=== PATIENT | female | born 1960 | race Caucasian/White ===

== ENCOUNTER → 2017-08-07 09:27 | Outpatient (CLI) | payer BC, SELFPAY ==
[2017-08-07 10:01] LABS: Basophils % 0.3 % (0.1-2.0); Eosinophils # 0.2 K/mm3 (0.0-0.4); Eosinophils % 2.4 % (0.1-12.0); Hematocrit 45.4 % (37.0-47.0); Hemoglobin 15.4 g/dL (12.2-16.2); Lymphocytes # 2.3 K/mm3 (0.7-4.5); Lymphocytes % 22.9 K/mm3 (10-50); Mean Corpuscular Hemoglobin 30.8 pg (27.0-31.2); Mean Corpuscular Volume 90.7 fl (81-99); Mean Platelet Volume 7.4 fl (7.4-10.4); Monocytes # 0.5 K/mm3 (0.1-1.0); Neutrophils % 69.4 % (37.0-80.0); Platelet Count 322 K/mm3 (142-424); Red Blood Count 5.01 M/mm3 (4.20-5.40); Red Cell Distribution Width 13.5 % (11.5-17.5)
[2017-08-07 10:55] LABS: Erythrocyte Sedimentation Rate 12 mm/hr (0-30)
[2017-08-07 11:17] LABS: Alanine Aminotransferase 37 U/L (12-78); Albumin Level 4.1 gm/dL (3.4-5.0); Albumin/Globulin Ratio 1.1 (1.1-1.8); Alkaline Phosphatase 79 U/L (46-116); Anion Gap 12.4 mEq/L (5-15); Aspartate Amino Transferase 18 U/L (15-37); Bilirubin,Total 0.5 mg/dL (0.2-1.0); Blood Urea Nitrogen 13 mg/dL (7-18); Calcium 9.7 mg/dL (8.5-10.1); Carbon Dioxide 29 mmol/L (21.0-32.0); Chloride 103 mmol/L (98-107); Chol/HDL Ratio 4.6 (1-3.5); Cholesterol 209 mg/dL (140-200); Estimated Glomerular Filt Rate 47 ml/min (>60); GFR (African American) 56 ML/MIN (>60); Globulin 3.7 gm/dl (1.3-3.2); Glucose 89 mg/dL (74-106); HDL Cholesterol 45 mg/dL (29-89); LDL Cholesterol 119 mg/dL (0-130); Potassium 4.4 mmoL/L (3.5-5.1); Sodium 140 mmol/L (136-145); Thyroid Stimulating Hormone 1.83 uIU/ml (0.358-3.740); Total Protein,Serum 7.8 gm/dL (6.4-8.2); Triglycerides 223 mg/dL (30-200); VLDL Cholesterol 45 mg/dL (0-40)
[2017-08-12 06:14] LABS: Antinuclear Antibodies, IFA Positive (.)
== END ==
PROVIDERS: PCP Nurse Practitioner Family; Visit Provider Nurse Practitioner Family
DX: G89.4 Chronic pain syndrome (principal); E78.2 Mixed hyperlipidemia; F41.9 Anxiety disorder, unspecified
CPT/HCPCS: 36415; 80053; 80061; 84443; 85025; 85651; 86038

== ENCOUNTER → 2017-08-20 16:01 | Outpatient (CLI) | payer BC, SELFPAY ==
--- NOTE | 2017-08-20 16:08 | MM_ITS ---
MM Dig screening mamm BI w/CAD CAD Screening ORDERING PHYSICIAN : Coco Parada PATIENT AGE: 57 years GENDER: Female COMPARISON: Previous mammograms: From [facility] equivocal for but have not arrived in this is studies are now dictated facilitate patient care. It outside studies become in INDICATION: TECHNIQUE: Standard CC and MLO images were obtained. R2 CAD reviewed. Additional axillary cc views both breast as well as MLO views to include the IMF FINDINGS: Low-density breast generalized diffuse fatty replacement breast bilaterally. No dominant mass nor suspicious calcifications either breast. . No architectural distortion. CAD highlights no areas of significant concern -----IMPRESSION: Low-density breast. No areas of concern. Bilateral follow-up in one year recommended. ) (We have called for outside films from [place] but have not arrived. An addendum may follow but this is a negative mammogram in either case BI-RADS Category: 1 Negative RECOMMENDED FOLLOW-UP: 1YR - 1 YEAR FOLLOW-UP (A letter has been sent to the patient regarding results of the study.)
== END ==
PROVIDERS: PCP Nurse Practitioner Family; Visit Provider Nurse Practitioner Family
DX: Z12.31 Encounter for screening mammogram for malignant neoplasm of breast (principal)
CPT/HCPCS: 77067

== ENCOUNTER → 2017-08-31 11:25 | Outpatient (POV) | payer BC, SELFPAY ==
[2017-08-31 11:40] VITALS: BP 139/85; PULSE 88; RESP 20; O2SAT 98
--- NOTE | 2017-08-31 12:17 | HMH.PMCON ---
Assessment and Plan (1) Degenerative joint disease (DJD) of lumbar spine Current visit: Yes Status: Chronic Category: Medical Code(s): M47.816 - Spondylosis without myelopathy or radiculopathy, lumbar region (2) Lumbar radiculopathy Current visit: Yes Status: Chronic Category: Medical Code(s): M54.16 - Radiculopathy, lumbar region (3) Degenerative disc disease, cervical Current visit: Yes Status: Chronic Category: Medical Code(s): M50.30 - Other cervical disc degeneration, unspecified cervical region (4) Cervical radiculopathy Current visit: Yes Status: Chronic Category: Medical Code(s): M54.12 - Radiculopathy, cervical region - Assessment and plan all Dx Assessment and Plan for all problems:: We will plan a Nuvectra neurostimulator trial. I believe this would be beneficial to get both cervical and lumbar long-term coverage. Patient's tried and failed anti-inflammatories, physical therapy, massage therapy, medications, injections. Patient is looking for long-term nonnarcotic way to control her symptoms. Patient has a high ORT and is not a narcotic candidate. Patient is looking to become more functional. We will send her for psychological evaluation and then we will proceed with a trial. This note was dictated using voice recognition software and may contain errors or omissions HPI - Data of Consult Consult date: 08/31/17 Requesting Physician: Cassandra Woodward APRN Primary Care Provider: Coco Parada APRN Family Provider: Coco Parada APRN - Consult Narrative Reason for consult: Neck and low back pain History of present illness: Ms. Tinajero is a 57 year old female presents today for consultation in regards to her neck and low back pain. Patient rates her pain today an 8 out of 10. Patient has recently moved here from [place]. Patient had been going to pain management in [place] and receiving lumbar epidural steroid injections along with cervical epidural steroid injections. The injections worked for some time however they only lasted for 2-3 weeks. Patient was also getting Fraser 7.5 mg 1 p.o. 3 times daily. Patient states she does not want to be on narcotic medication. Patient is currently on Lorazepam 2 mg 1 p.o. 3 times daily for anxiety. Patient is interested in more long-term options for pain control. She did I had a long discussion about neuromodulation. Patient states that most of her pain is in her neck and radiating to her right arm. She also has low back pain radiating into bilateral legs. Patient's tried and failed medications, anti-inflammatories, career and technology education teacher, physical therapy, injections. Patient also tried and failed massage therapy. Patient's cervical MRI does show bilateral C6 nerve root compression. Patient's lumbar MRI does show multilevel degenerative disc disease. Patient is not on any anticoagulation therapy at this time. Patient is concerned about polypharmacy due to the amount of medication she has taken in the past. CC: Cassandra Woodward APRN [facility] History I have reviewed the patient's past medical history: Yes Laterality Cases: Bilateral: Tonsillectomy Other Surgeries: Yes: Cholecystectomy - *Social History Alcohol Intake: never Occupational Status: unemployed Housing: house - Psychiatric History Expresses thoughts of harming self/others: None Suicide Plan Description: No Plan *Family Hx:: Unable to obtain Review of Systems - Review of Systems ROS General: no recent weight change, no fever, no sleep disturbances Respiratory: no cough, no shortness of air, no recurring pulmonary infections Cardiovascular/Peripheral Vascular: No chest pain, No palpitations, no edema, no shortness of breath. Gastrointestinal: no incontinence, normal bowel movements reported Genitourinary: no incontinence Musculoskeletal: Pain, right arm pain, back pain, bilateral leg pain Psychiatric: normal mood/ affect Neurological: [denies weakness
--- NOTE | 2017-08-31 12:20 | P.CONS_ITS ---
Assessment and Plan (1) Degenerative joint disease (DJD) of lumbar spine Current visit: Yes Status: Chronic Category: Medical Code(s): M47.816 - Spondylosis without myelopathy or radiculopathy, lumbar region (2) Lumbar radiculopathy Current visit: Yes Status: Chronic Category: Medical Code(s): M54.16 - Radiculopathy, lumbar region (3) Degenerative disc disease, cervical Current visit: Yes Status: Chronic Category: Medical Code(s): M50.30 - Other cervical disc degeneration, unspecified cervical region (4) Cervical radiculopathy Current visit: Yes Status: Chronic Category: Medical Code(s): M54.12 - Radiculopathy, cervical region - Assessment and plan all Dx Assessment and Plan for all problems:: We will plan a Nuvectra neurostimulator trial. I believe this would be beneficial to get both cervical and lumbar long-term coverage. Patient's tried and failed anti-inflammatories, physical therapy, massage therapy, medications, injections. Patient is looking for long-term nonnarcotic way to control her symptoms. Patient has a high ORT and is not a narcotic candidate. Patient is looking to become more functional. We will send her for psychological evaluation and then we will proceed with a trial. This note was dictated using voice recognition software and may contain errors or omissions HPI - Data of Consult Consult date: 08/31/17 Requesting Physician: Cassandra Woodward APRN Primary Care Provider: Coco Parada APRN Family Provider: Coco Parada APRN - Consult Narrative Reason for consult: Neck and low back pain History of present illness: Ms. Tinajero is a 57 year old female presents today for consultation in regards to her neck and low back pain. Patient rates her pain today an 8 out of 10. Patient has recently moved here from [place]. Patient had been going to pain management in [place] and receiving lumbar epidural steroid injections along with cervical epidural steroid injections. The injections worked for some time however they only lasted for 2-3 weeks. Patient was also getting Pengilly 7.5 mg 1 p.o. 3 times daily. Patient states she does not want to be on narcotic medication. Patient is currently on Lorazepam 2 mg 1 p.o. 3 times daily for anxiety. Patient is interested in more long-term options for pain control. She did I had a long discussion about neuromodulation. Patient states that most of her pain is in her neck and radiating to her right arm. She also has low back pain radiating into bilateral legs. Patient's tried and failed medications, anti-inflammatories, adult daycare coordinator, physical therapy, injections. Patient also tried and failed massage therapy. Patient's cervical MRI does show bilateral C6 nerve root compression. Patient's lumbar MRI does show multilevel degenerative disc disease. Patient is not on any anticoagulation therapy at this time. Patient is concerned about polypharmacy due to the amount of medication she has taken in the past. CC: Cassandra Woodward APRN [facility] History I have reviewed the patient's past medical history: Yes Laterality Cases: Bilateral: Tonsillectomy Other Surgeries: Yes: Cholecystectomy - *Social History Alcohol Intake: never Occupational Status: unemployed Housing: house - Psychiatric History Expresses thoughts of harming self/others: None Suicide Plan Description: No Plan *Family Hx:: Unable to obtain Review of Systems - Review of Systems ROS General: no recent weight change, no fever, no sleep disturbances Respiratory: no cough, no shortness of air, no recurring pulmonary
== END ==
PROVIDERS: PCP Nurse Practitioner Family; Visit Provider Clinical Nurse Specialist Family Health
DX: M47.816 Spondylosis without myelopathy or radiculopathy, lumbar region (principal); M54.16 Radiculopathy, lumbar region; M50.30 Other cervical disc degeneration, unspecified cervical region; M54.12 Radiculopathy, cervical region
CPT/HCPCS: 99202

== ENCOUNTER → 2018-02-04 13:18 | Outpatient (CLI) | payer BC, SELFPAY ==
[2018-02-04 15:08] LABS: Anion Gap 13.6 mEq/L (5-15); Blood Urea Nitrogen 10 mg/dL (7-18); Calcium 9.6 mg/dL (8.5-10.1); Carbon Dioxide 29 mmol/L (21.0-32.0); Chloride 100 mmol/L (98-107); Estimated Glomerular Filt Rate 29 ml/min (>60); GFR (African American) 35 ML/MIN (>60); Glucose 94 mg/dL (74-106); Potassium 3.6 mmoL/L (3.5-5.1); Sodium 139 mmol/L (136-145)
== END ==
PROVIDERS: PCP Nurse Practitioner Family; Visit Provider Nurse Practitioner Family
DX: R79.89 Other specified abnormal findings of blood chemistry (principal); R63.4 Abnormal weight loss
CPT/HCPCS: 36415; 80048; 84443

== ENCOUNTER 2018-02-05 08:45 | Outpatient (CLI) | payer BC, SELFPAY ==
[2018-02-05 09:20] VITALS: BP 116/82; PULSE 81; RESP 18; TEMP 36.9; O2SAT 95
[2018-02-05 09:50] VITALS: BP 101/66; PULSE 71; RESP 16
[2018-02-05 10:20] VITALS: BP 105/71; PULSE 73; RESP 16; TEMP 36.6; O2SAT 97
== END 2018-02-05 10:30 | disposition home or self-care (01) ==
LOC: INF 09:02
PROVIDERS: Visit Provider Nurse Practitioner Family
DX: R79.89 Other specified abnormal findings of blood chemistry (principal); E86.0 Dehydration
CPT/HCPCS: 96360

== ENCOUNTER → 2018-02-11 08:24 | Outpatient (CLI) | payer OTHER, BC, SELFPAY ==
[2018-02-11 09:47] LABS: Anion Gap 14.1 mEq/L (5-15); Blood Urea Nitrogen 10 mg/dL (7-18); Calcium 9.7 mg/dL (8.5-10.1); Carbon Dioxide 29 mmol/L (21.0-32.0); Chloride 103 mmol/L (98-107); Creatinine,Serum 1.51 mg/dL (0.55-1.02); Estimated Glomerular Filt Rate 36 ml/min (>60); GFR (African American) 43 ML/MIN (>60); Glucose 107 mg/dL (74-106); Potassium 4.1 mmoL/L (3.5-5.1); Sodium 142 mmol/L (136-145)
== END ==
PROVIDERS: Visit Provider Nurse Practitioner Family
DX: R79.89 Other specified abnormal findings of blood chemistry (principal)
CPT/HCPCS: 36415; 80048

== ENCOUNTER → 2018-04-16 11:22 | Outpatient (CLI) | payer MEDICAID, SELFPAY ==
[2018-04-16 11:32] LABS: Microscopic, Urine URINE MICROSCOPIC (MICROSCOPIC)
[2018-04-16 12:21] LABS: Basophils % 0.7 % (0.1-2.0); Eosinophils # 0.3 K/mm3 (0.0-0.4); Eosinophils % 4.9 % (0.1-12.0); Hematocrit 41.3 % (37.0-47.0); Hemoglobin 13.3 g/dL (12.2-16.2); Lymphocytes # 1.8 K/mm3 (0.7-4.5); Lymphocytes % 31.3 % (10-50); Mean Corpuscular HGB Conc 32.1 g/dL (31.8-35.4); Mean Corpuscular Hemoglobin 30.6 pg (27.0-31.2); Mean Corpuscular Volume 95.2 fl (81-99); Mean Platelet Volume 7.2 fl (7.4-10.4); Monocytes # 0.3 K/mm3 (0.1-1.0); Monocytes % 5.5 % (1.7-9.3); Neutrophils # 3.3 K/mm3 (1.8-7.8); Neutrophils % 57.5 % (37.0-80.0); Platelet Count 373 K/mm3 (142-424); Red Blood Count 4.34 M/mm3 (4.20-5.40); Red Cell Distribution Width 13.1 % (11.5-17.5); White Blood Count 5.7 K/mm3 (4.8-10.8)
[2018-04-16 12:37] LABS: Appearance,Urine CLEAR (Clear); Bilirubin,Urine Negative (Negative); Blood, Urine Negative (Negative); Color,Urine YELLOW (Yellow); Glucose,Urine (UA) Negative (Negative); Ketones,Urine Negative (Negative); Leukocyte Esterase,Urine 1+ (Negative); Nitrate,Urine Negative (Negative); Protein,Urine Negative (Negative); Urobilinogen,Urine 0.2 EU/dl (0.2)
[2018-04-16 12:45] LABS: Bacteria,Urine Trace /lpf
[2018-04-16 13:01] LABS: Erythrocyte Sedimentation Rate 35 mm/hr (0-30)
[2018-04-16 14:09] LABS: Alanine Aminotransferase 28 U/L (12-78); Albumin Level 3.9 gm/dL (3.4-5.0); Albumin/Globulin Ratio 1.1 (1.1-1.8); Alkaline Phosphatase 69 U/L (46-116); Aspartate Amino Transferase 16 U/L (15-37); Bilirubin,Total 0.4 mg/dL (0.2-1.0); Blood Urea Nitrogen 14 mg/dL (7-18); C-Reactive Protein 0.2 mg/L (0.0-0.9); Calcium 8.9 mg/dL (8.5-10.1); Carbon Dioxide 28 mmol/L (21.0-32.0); Chloride 101 mmol/L (98-107); Creatinine,Serum 1.23 mg/dL (0.55-1.02); Estimated Glomerular Filt Rate 45 ml/min (>60); GFR (African American) 55 ML/MIN (>60); Globulin 3.7 gm/dl (1.3-3.2); Glucose 89 mg/dL (74-106); Sodium 137 mmol/L (136-145); Total Protein,Serum 7.6 gm/dL (6.4-8.2)
[2018-04-17 11:10] LABS: Hep A Ab, IgM Negative (Negative); Hepatitis B Core Antibody IgM Negative (Negative); Hepatitis B Surface Antigen Negative (Negative)
[2018-04-17 21:53] LABS: Complement C3 136 mg/dL (82-167); Deamidated Gliadin Abs, IgA 7 units (0-19); Deamidated Gliadin Abs, IgG 2 units (0-19); Hepatitis C Antibody 0.1 s/co ratio (0.0-0.9); Tissue Transglutaminase IgA Ab <2 U/mL (0-3); Tissue Transglutaminase IgG Ab <2 U/mL (0-5)
[2018-04-19 15:19] LABS: Anti-Centromere B Antibodies <0.2 AI (0.0-0.9); Anti-Jo-1 <0.2 AI (0.0-0.9); Anti-Smith Antibody <0.2 AI (0.0-0.9); Antichromatin Antibodies <0.2 AI (0.0-0.9); Antiscleroderma-70 Antibodies 0.6 AI (0.0-0.9); RNP Antibodies <0.2 AI (0.0-0.9); Sjogren's Anti-SS-A 0.2 AI (0.0-0.9); Sjogren's Anti-SS-B <0.2 AI (0.0-0.9)
[2018-04-19 15:32] LABS: Anti-Cardio Antibody IgM <9 MPL U/mL (0-12); Anti-Cardiolipin Antibody IgG <9 GPL U/mL (0-14); Anti-DNA (DS) Ab Qn 5 IU/mL (0-9); Anticardiolipin Ab,IgA,Qn <9 APL U/mL (0-11)
[2018-04-20 13:58] LABS: Endomysial IgA Antibody Negative (Negative)
[2018-04-21 10:31] LABS: Reticulin IgA Antibody Negative titer (Neg:<1:2.5)
== END ==
PROVIDERS: Visit Provider Internal Medicine
DX: N18.9 Chronic kidney disease, unspecified (principal); R21 Rash and other nonspecific skin eruption; R53.83 Other fatigue; R76.8 Other specified abnormal immunological findings in serum
CPT/HCPCS: 36415; 80053; 80074; 81001; 83516; 85025; 85651; 86140; 86147; 86161; 86225; 86235; 86255; 86256; 87086

== ENCOUNTER → 2018-04-17 10:43 | Outpatient (CLI) | payer MEDICAID, SELFPAY ==
[2018-04-19 12:12] LABS: PTT-LA 33.2 sec (0.0-51.9); dRVVT 42.6 sec (0.0-47.0)
[2018-04-19 15:32] LABS: Lupus Reflex Interpretation Comment: (.)
== END ==
PROVIDERS: Visit Provider Internal Medicine
DX: R76.8 Other specified abnormal immunological findings in serum (principal); R21 Rash and other nonspecific skin eruption; R53.83 Other fatigue; N18.9 Chronic kidney disease, unspecified
CPT/HCPCS: 36415; 85613

== ENCOUNTER 2018-06-04 08:00 | Outpatient (RCR) | payer MEDICAID, SELFPAY | END 2018-06-04 08:05 | disposition home or self-care (01) | LOC: PT 08:00 | PROVIDERS: Visit Provider Internal Medicine | DX: M17.0 Bilateral primary osteoarthritis of knee (principal) | CPT/HCPCS: 97010; 97012; 97014; 97110; 97163; 97164; G0283 ==

== ENCOUNTER → 2018-06-17 12:43 | Outpatient (CLI) | payer MEDICAID, SELFPAY ==
--- NOTE | 2018-06-17 12:46 | MR_ITS ---
MR cervical spine wo con, MR 3-d myelogram/MRCP HISTORY: RT sided neck pain. RT arm pain, numbness, and tingling that goes to fingers. X1YR. Headache. ITS.REASON: CERVICAL RADICULOPATHY ORDERING PHYSICIAN: Octavio Acevedo MD PATIENT AGE: 57 years Comparison: None TECHNIQUE: Standard multiplanar multiecho sequences are performed without contrast. 3-D MIP and myelographic images are also rendered and reviewed FINDINGS: There is normal alignment. The craniocervical junction has an unremarkable appearance. There is straightening of the cervical lordosis which may be due to patient positioning or muscle spasm C2-C3: Unremarkable. C3-C4: Mild left-sided facet hypertrophic change with minimal left foraminal narrowing. C4-C5: Minimal bulging disc. C5-C6: Degenerative disc disease with decrease in the disc-disc desiccation with broad-based bulging disc/disc osteophyte complex along with uncovertebral hypertrophy/disc osteophyte complexes . There is narrowing of the canal at 9 mm with bilateral lateral recess and foraminal narrowing. There is minimal flattening of the anterior aspect of the cord from the broad-based disc osteophyte complex. C6-C7: Degenerative disc disease with bulging disc. C7-T1: Unremarkable. IMPRESSION: 1. Degenerative disc disease at C5-C6 with broad-based bulging disc/disc osteophyte complex along with uncovertebral hypertrophy/disc osteophyte complexes with canal stenosis of 9 mm and bilateral lateral recess and foraminal narrowing and minimal flattening of the cord anteriorly. 2. Cervical spondylosis with other degenerative changes as described above. 3. No extruded herniated disc
== END ==
PROVIDERS: PCP Nurse Practitioner Family; Visit Provider Anesthesiology Pain Medicine
DX: M54.12 Radiculopathy, cervical region (principal)
CPT/HCPCS: 72141; 76376

== ENCOUNTER 2018-07-21 13:57 | Outpatient (RCR) | payer OTHER, SELFPAY ==
--- NOTE | 2018-07-21 14:47 | HMH.PTOPEV ---
PT Outpatient Evaluation Rehab PT Outpatient Evaluation Start: 07/21/18 14:36 Freq: Status: Active Protocol: Document 07/21/18 14:36 KAREN (Rec: 07/21/18 14:46 KAREN [id number]) Electronically Signed By Gabriele Loza, PT 07/21/18 14:36 Outpatient Therapy Subjective History Subjective History Pt reports h/o chronic neck pain, mid back pain, LBP and B Knee pain. Pt reports recent exacerbation of R sided neck pain and mid back pain, as well as intermittent R UE radicular s/s into R 4th/5th digits and frequent cervico- genic SCHUSTER's. Pt reports previous imaging studies have revealed stenosis in cervical (C6-7) and thoracic spine. PMH : fibromyalgia Chief Complaint Pain Spasms Stiff Paresthesia Weakness Symptom Type Ache Throb Sharp Dull Stabbing Burning Numbness Tingling Shooting Symptoms Relieved By Rest/Positioning Symptoms Aggravated By Standing Bending/Stooping Physical Activity Twisting Walking Lifting Prior Functional Limitations Reaching Lifting Housework Current Functional Limitations Reaching Lifting Housework Bending/Stooping Symptom Description Constant but Variable Level of pain today (0-10) 6 Pain scale - at its best (0-10) 3 Pain scale - at its worst (0-10) 8 Cervical Eval Palpation Cervical Muscles R Cervical Paraspinal L Cervical Paraspinal R Suboccipital L Suboccipital R CT Junction L CT Junction R Upper Trapezius L Upper Trapezius
== END 2018-07-21 13:59 | disposition home or self-care (01) ==
LOC: PT 13:57
PROVIDERS: Visit Provider Nurse Practitioner Family
DX: M54.6 Pain in thoracic spine (principal)
CPT/HCPCS: 97163

== ENCOUNTER 2018-10-19 11:00 | Outpatient (RCR) | payer OTHER, SELFPAY ==
--- NOTE | 2018-09-14 11:46 | HMH.PTOPEV ---
PT Outpatient Evaluation Rehab PT Outpatient Evaluation Start: 09/14/18 11:36 Freq: Status: Active Protocol: Document 09/14/18 11:36 KAREN (Rec: 09/14/18 11:45 KAREN [id number]) Electronically Signed By Gabriele Loza, PT 09/14/18 11:36 Outpatient Therapy Subjective History Subjective History Pt reports h/o chronic pain/ fibromyalgia for ~10+yrs. Pt reports exacerbation of s/s over the last 4 weeks, with severe pain in cervical spine, mid back, low back, and bilateral knees. Pt also reports chronic B knee pain (R >L), and intermittent R sided LBP/hip/glut area pain. Pt reports previous episodes of skilled P.T. have improved s/s . PMH:fibromyalgia, OA Chief Complaint Pain,Stiff,Paresthesia, Weakness Symptom Type Ache,Throb,Sharp,Dull,Stabbing ,Burning,Numbness,Tingling, Shooting Symptoms Relieved By Nothing Symptoms Aggravated By Prone,Supine,Sitting,Standing, Bending/Stooping,Physical Activity,Twisting,Walking, Lifting Prior Functional Limitations Reaching,Lifting,Housework, Driving,Standing,Sitting, Walking Current Functional Limitations Reaching,Lifting,Housework, Driving,Standing,Sitting, Walking Symptom Description Constant but Variable Level of pain today (0-10) 7 Pain scale - at its best (0-10) 7 Pain scale - at its worst (0-10) 10 Cervical Eval Palpation Cervical Muscles R Cervical Paraspinal,L Cervical Paraspinal,R Suboccipital,L Suboccipital,R CT Junction,L CT Junction,R Upper Trapezius,L Upper Trapezius,R Thoracic Paraspinals,L Thoracic Paraspinals Cervical/Thoracic Palpation Findings Tenderness,Muscle Guarding Posture Head/C-Spine Posture Sitting Position Flexed Head/C-Spine Posture Standing Position Flexed Flexibility Deficits Upper Trapezius Muscle Length (R) Mild Tightness,(L) Mild Tightness Scalene Group Muscle Length (R) Mild Tightness,(L) Mild Tightness Pectorali
== END 2018-10-19 11:05 | disposition home or self-care (01) ==
LOC: PT 11:00
PROVIDERS: Visit Provider Internal Medicine
DX: M25.50 Pain in unspecified joint (principal); M54.5 Low back pain; M54.6 Pain in thoracic spine
CPT/HCPCS: 97010; 97014; 97110; 97163; G0283

== ENCOUNTER → 2019-01-31 11:38 | Outpatient (CLI) | payer OTHER, SELFPAY ==
[2019-01-31 12:06] LABS: Basophils # 0.1 K/mm3 (0-0.2); Basophils % 0.7 % (0.1-2.0); Eosinophils # 0.3 K/mm3 (0.0-0.4); Eosinophils % 4.3 % (0.1-12.0); Hemoglobin 13.5 g/dL (12.2-16.2); Lymphocytes # 1.9 K/mm3 (0.7-4.5); Lymphocytes % 27.2 % (10-50); Mean Corpuscular HGB Conc 33.7 g/dL (31.8-35.4); Mean Corpuscular Hemoglobin 30.9 pg (27.0-31.2); Mean Corpuscular Volume 91.7 fl (81-99); Mean Platelet Volume 7.8 fl (7.4-10.4); Monocytes # 0.4 K/mm3 (0.1-1.0); Monocytes % 5.5 % (1.7-9.3); Neutrophils # 4.4 K/mm3 (1.8-7.8); Neutrophils % 62.3 % (37.0-80.0); Platelet Count 348 K/mm3 (142-424); Red Blood Count 4.36 M/mm3 (4.20-5.40); Red Cell Distribution Width 12.7 % (11.5-17.5); White Blood Count 7.1 K/mm3 (4.8-10.8)
[2019-01-31 13:49] LABS: Alanine Aminotransferase 17 U/L (12-78); Albumin Level 3.5 gm/dL (3.4-5.0); Albumin/Globulin Ratio 1.1 (1.1-1.8); Alkaline Phosphatase 86 U/L (46-116); Anion Gap 12.1 mEq/L (5-15); Aspartate Amino Transferase 12 U/L (15-37); Bilirubin,Total 0.2 mg/dL (0.2-1.0); Blood Urea Nitrogen 22 mg/dL (7-18); Calcium 9.7 mg/dL (8.5-10.1); Carbon Dioxide 29 mmol/L (21.0-32.0); Chloride 105 mmol/L (98-107); Chol/HDL Ratio 4.1 (1-3.5); Cholesterol 150 mg/dL (140-200); Creatinine,Serum 1.05 mg/dL (0.55-1.02); Estimated Glomerular Filt Rate 54 ml/min (>60); GFR (African American) 65 ML/MIN (>60); Globulin 3.3 gm/dl (1.3-3.2); Glucose 87 mg/dL (74-106); HDL Cholesterol 37 mg/dL (29-89); LDL Cholesterol 43 mg/dL (0-130); Potassium 4.1 mmoL/L (3.5-5.1); Sodium 142 mmol/L (136-145); Total Protein,Serum 6.8 gm/dL (6.4-8.2); Triglycerides 349 mg/dL (30-200); VLDL Cholesterol 70 mg/dL (0-40)
== END ==
PROVIDERS: Visit Provider Nurse Practitioner Family
DX: N18.3 Chronic kidney disease, stage 3 (moderate) (principal); E78.2 Mixed hyperlipidemia
CPT/HCPCS: 36415; 80053; 80061; 85025

== ENCOUNTER 2019-03-24 16:00 | Outpatient (RCR) | payer OTHER, SELFPAY ==
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
== END 2019-03-24 16:05 | disposition home or self-care (01) ==
LOC: PT 16:00
PROVIDERS: Visit Provider Nurse Practitioner Family
DX: M54.2 Cervicalgia (principal)
CPT/HCPCS: 97010; 97014; 97035; 97110; 97140; 97163; G0283

== ENCOUNTER → 2019-05-16 14:56 | Outpatient (CLI) | payer MEDICARE, SELFPAY ==
--- NOTE | 2019-05-16 15:01 | MM_ITS ---
PROCEDURE: MM DIG SCREENING MAMM BI W/CAD CLINICAL INDICATION: SCREENING There is no personal or family history of breast cancer. The patient is on estradiol patch. COMPARISON: MM MAMMO SCREEN W CAD G0202 from 03/29/2015 [facility] MM Dig screening mamm BI w/CAD from 08/20/2017 TECHNIQUE: Standard CC and MLO images and 3D Tomosynthesis was obtained. R2 CAD reviewed. FINDINGS: The breasts are composed primarily of fat with minimal scattered fibroglandular densities in each breast. There is a stable small benign-appearing nodular density central portion right breast. There are multiple small nodes in both axilla a couple of which are low-lying. There is no suspicious lesion and no suspicious microcalcifications. IMPRESSION: Fatty type breast parenchyma with no suspicious lesions seen BI-RAD Category: 2 Benign Finding(s) FOLLOW-UP: 1YR 1 Year Follow-up (A letter has been sent to the patient regarding results of the study.) Dictated by: Dr. Abhi Metzger MD 05/18/2019 09:[address] Abhi Metzger MD in [place] 05/18/2019 09:05
--- NOTE | 2019-05-16 15:02 | XR_ITS ---
PROCEDURE: XR DEXA AXIAL SKELETON CLINICAL HISTORY: MENOPAUSAL SCREENING COMPARISON: No exams were available for comparison FINDINGS: Right femur density is 1.085 grams/centimeters sq with a T-score of 1.2 which is normal. Left femur neck density is 0.850 grams/centimeters sq which is 0.0 which is normal. Lumbar spine density not calculated IMPRESSION: Normal bone density. Suggest follow-up in 2 years. Dictated by: Kevin Murillo MD 05/23/2019 18:15 Electronically signed by Kevin Murillo MD in [place] 05/23/2019 18:15
== END ==
PROVIDERS: PCP Nurse Practitioner Family; Visit Provider Nurse Practitioner Family
DX: Z12.31 Encounter for screening mammogram for malignant neoplasm of breast (principal); Z78.0 Asymptomatic menopausal state
CPT/HCPCS: 77063; 77067; 77080

== ENCOUNTER → 2019-05-27 12:57 | Outpatient (CLI) | payer MEDICARE, SELFPAY ==
[2019-05-27 13:47] LABS: Basophils % 0.4 % (0.1-2.0); Eosinophils # 0.2 K/mm3 (0.0-0.4); Eosinophils % 2.3 % (0.1-12.0); Lymphocytes % 24.6 % (10-50); Mean Corpuscular HGB Conc 32.6 g/dL (31.8-35.4); Mean Corpuscular Hemoglobin 29.7 pg (27.0-31.2); Mean Corpuscular Volume 91.1 fl (81-99); Mean Platelet Volume 7.8 fl (7.4-10.4); Monocytes # 0.5 K/mm3 (0.1-1.0); Monocytes % 6.8 % (1.7-9.3); Neutrophils # 5.2 K/mm3 (1.8-7.8); Neutrophils % 65.8 % (37.0-80.0); Platelet Count 397 K/mm3 (142-424); Red Blood Count 4.72 M/mm3 (4.20-5.40); Red Cell Distribution Width 14.5 % (11.5-17.5); White Blood Count 7.9 K/mm3 (4.8-10.8)
[2019-05-27 15:02] LABS: Alanine Aminotransferase 34 U/L (9-52); Albumin/Globulin Ratio 1.1 (1.1-1.8); Alkaline Phosphatase 71 U/L (46-116); Anion Gap 13.3 mEq/L (5-15); Aspartate Amino Transferase 29 U/L (15-37); Bilirubin,Total 0.4 mg/dL (0.2-1.0); Blood Urea Nitrogen 16 mg/dL (7-18); Calcium 9.5 mg/dL (8.5-10.1); Carbon Dioxide 30 mmol/L (21.0-32.0); Chloride 102 mmol/L (98-107); Creatinine,Serum 1.26 mg/dL (0.55-1.02); Estimated Glomerular Filt Rate 44 ml/min (>60); GFR (African American) 53 ML/MIN (>60); Globulin 3.5 gm/dl (1.3-3.2); Glucose 91 mg/dL (74-106); Potassium 4.3 mmoL/L (3.5-5.1); Sodium 141 mmol/L (137-145); Total Protein,Serum 7.5 g/dL (6.4-8.2)
[2019-05-28 19:12] LABS: Rapid Plasma Reagin Ab Titer Non Reactive (NonRea<1:1)
[2019-05-30 21:00] LABS: Neisseria gonorrhoeae, NAA Negative (Negative)
== END ==
PROVIDERS: Visit Provider Nurse Practitioner Family
DX: R35.0 Frequency of micturition (principal); B00.1 Herpesviral vesicular dermatitis; Z13.9 Encounter for screening, unspecified
CPT/HCPCS: 36415; 80053; 85025; 86592; 86695; 86790; 87491; 87591

== ENCOUNTER 2019-12-06 14:00 | Outpatient (CLI) | payer MEDICARE, SELFPAY ==
[2019-12-06 14:30] VITALS: BP 136/78; PULSE 107; RESP 18; TEMP 36.2; O2SAT 96
== END 2019-12-06 14:30 | disposition home or self-care (01) ==
LOC: INF 14:02
PROVIDERS: PCP Nurse Practitioner Family; Visit Provider Allergy & Immunology
DX: J45.51 Severe persistent asthma with (acute) exacerbation (principal)
CPT/HCPCS: 96372; J2357

== ENCOUNTER 2020-01-02 11:42 | Outpatient (CLI) | payer MEDICARE, SELFPAY ==
[2020-01-02 12:02] LABS: Basophils % 0.3 % (0.1-2.0); Eosinophils # 0.2 K/mm3 (0.0-0.4); Hemoglobin 14.7 g/dL (12.2-16.2); Lymphocytes # 1.5 K/mm3 (0.7-4.5); Lymphocytes % 19.9 % (10-50); Mean Corpuscular HGB Conc 34.1 g/dL (31.8-35.4); Mean Corpuscular Volume 93.8 fl (81-99); Monocytes # 0.5 K/mm3 (0.1-1.0); Monocytes % 6.7 % (1.7-9.3); Neutrophils # 5.4 K/mm3 (1.8-7.8); Platelet Count 323 K/mm3 (142-424); Red Blood Count 4.58 M/mm3 (4.20-5.40); Red Cell Distribution Width 14.1 % (11.5-17.5); White Blood Count 7.7 K/mm3 (4.8-10.8)
[2020-01-02 12:29] LABS: Erythrocyte Sedimentation Rate 23 mm/hr (0-30)
[2020-01-02 12:50] LABS: Chloride 100 mmol/L (98-107); Potassium 4.9 mmoL/L (3.5-5.1); Sodium 137 mmol/L (136-145)
[2020-01-02 12:53] LABS: Alanine Aminotransferase 28 U/L (12-78); Albumin Level 4.2 g/dl (3.5-5.0); Albumin/Globulin Ratio 1.4 (1.1-1.8); Alkaline Phosphatase 69 U/L (38-126); Anion Gap 11.9 mEq/L (5-15); Aspartate Amino Transferase 33 U/L (14-36); Bilirubin,Total 0.4 mg/dl (0.2-1.3); Blood Urea Nitrogen 16 mg/dl (7-17); Carbon Dioxide 30 mmol/L (22.0-30.0); Cholesterol 174 mg/dl (140-200); Estimated Glomerular Filt Rate 46 ml/min (>60); GFR (African American) 56 ML/MIN (>60); Globulin 3.1 g/dL (1.3-3.2); Total Protein,Serum 7.3 g/dl (6.3-8.2); Triglycerides 288 mg/dl (30-150); VLDL Cholesterol 58 mg/dL (0-40)
[2020-01-02 12:54] LABS: Calcium 9.4 mg/dl (8.4-10.2); Chol/HDL Ratio 4.2 (1-3.5); Glucose 98 mg/dl (74-100); HDL Cholesterol 41 mg/dl (40-60)
[2020-01-02 13:04] LABS: Direct LDL Cholesterol 86.52 mg/dL (100-129)
[2020-01-02 13:19] LABS: Hemoglobin A1C 5.6 % (4.0-6.0)
[2020-01-02 13:23] LABS: Thyroid Stimulating Hormone 0.39 uIU/mL (0.465-4.68)
[2020-01-02 14:15] VITALS: BP 147/86; PULSE 96; RESP 18; TEMP 36.4; O2SAT 98
[2020-01-03 10:02] LABS: Hepatitis C Antibody <0.1 s/co ratio (0.0-0.9)
[2020-01-03 13:30] LABS: RA Latex Turbid. 10.4 IU/mL (0.0-13.9)
[2020-01-29 16:24] LABS: Antinuclear Antibodies (ANA) Negative
== END 2020-01-02 14:15 | disposition home or self-care (01) ==
LOC: INF 11:43
PROVIDERS: PCP Nurse Practitioner Family; Visit Provider Allergy & Immunology
DX: E78.2 Mixed hyperlipidemia (principal); R63.5 Abnormal weight gain; N18.3 Chronic kidney disease, stage 3 (moderate); M25.50 Pain in unspecified joint; J45.51 Severe persistent asthma with (acute) exacerbation; Z79.899 Other long term (current) drug therapy
CPT/HCPCS: 36415; 80053; 80061; 83036; 84443; 85025; 85651; 86038; 86431; 87380; 96372; J2357

== ENCOUNTER → 2020-03-02 16:01 | Outpatient (CLI) | payer MEDICARE, SELFPAY | PROVIDERS: PCP Nurse Practitioner Family; Visit Provider Nurse Practitioner Family | DX: Z03.818 Encounter for observation for suspected exposure to other biological agents ruled out (principal) | CPT/HCPCS: U0003 ==

== ENCOUNTER 2020-03-29 10:10 | Outpatient (CLI) | payer MEDICARE, SELFPAY ==
[2020-03-29 10:39] VITALS: BP 123/85; PULSE 93; RESP 18; TEMP 36.2; O2SAT 98
== END 2020-03-29 10:40 | disposition home or self-care (01) ==
LOC: INF 10:21
PROVIDERS: Visit Provider Allergy & Immunology
DX: J45.51 Severe persistent asthma with (acute) exacerbation (principal)
CPT/HCPCS: 96372; J2357

== ENCOUNTER 2020-05-01 14:25 | Outpatient (CLI) | payer MEDICARE, SELFPAY ==
[2020-05-01 14:38] VITALS: BP 127/84; PULSE 99; RESP 18; TEMP 36.2; O2SAT 99
== END 2020-05-01 15:01 | disposition home or self-care (01) ==
LOC: INF 14:25
PROVIDERS: Visit Provider Allergy & Immunology
DX: J45.51 Severe persistent asthma with (acute) exacerbation (principal)
CPT/HCPCS: 96372; J2357

== ENCOUNTER 2020-06-06 14:50 | Outpatient (CLI) | payer MEDICARE, SELFPAY ==
[2020-06-06 15:25] VITALS: BP 146/80; PULSE 94; RESP 20; TEMP 36.7; O2SAT 99
== END 2020-06-06 15:44 | disposition home or self-care (01) ==
LOC: INF 14:50
PROVIDERS: Visit Provider Allergy & Immunology
DX: J45.51 Severe persistent asthma with (acute) exacerbation (principal)
CPT/HCPCS: 96372; J2357

== ENCOUNTER 2020-07-02 15:10 | Outpatient (CLI) | payer MEDICARE, SELFPAY ==
[2020-07-02 15:25] VITALS: BP 120/84; PULSE 94; RESP 18; TEMP 36.3; O2SAT 99
== END 2020-07-02 15:50 | disposition home or self-care (01) ==
LOC: INF 15:10
PROVIDERS: Visit Provider Allergy & Immunology
DX: J45.51 Severe persistent asthma with (acute) exacerbation (principal)
CPT/HCPCS: 96372; J2357

== ENCOUNTER 2020-07-30 15:08 | Outpatient (CLI) | payer MEDICARE, SELFPAY ==
[2020-07-30 15:30] VITALS: BP 149/82; PULSE 96; RESP 18; TEMP 36.2; O2SAT 97
== END 2020-07-30 15:30 | disposition home or self-care (01) ==
LOC: INF 15:08
PROVIDERS: Visit Provider Allergy & Immunology
DX: J45.51 Severe persistent asthma with (acute) exacerbation (principal)
CPT/HCPCS: 96372; J2357

== ENCOUNTER 2020-08-27 15:03 | Outpatient (CLI) | payer MEDICARE, SELFPAY ==
[2020-08-27 15:26] VITALS: BP 113/68; PULSE 101; RESP 18; TEMP 36.6; O2SAT 97
== END 2020-08-27 15:45 | disposition home or self-care (01) ==
LOC: INF 15:03
PROVIDERS: Visit Provider Nurse Practitioner
DX: J45.51 Severe persistent asthma with (acute) exacerbation (principal)
CPT/HCPCS: 96372; J2357

== ENCOUNTER 2020-09-24 14:34 | Outpatient (CLI) | payer MEDICARE, SELFPAY ==
[2020-09-24 14:54] VITALS: BP 137/90; PULSE 92; RESP 18; TEMP 36.4; O2SAT 97
== END 2020-09-24 15:06 | disposition home or self-care (01) ==
LOC: INF 14:34
PROVIDERS: Visit Provider Nurse Practitioner
DX: J45.51 Severe persistent asthma with (acute) exacerbation (principal)
CPT/HCPCS: 96372; J2357

== ENCOUNTER → 2020-11-05 14:25 | Outpatient (CLI) | payer MEDICARE, SELFPAY ==
[2020-11-05 14:53] VITALS: BP 124/96; PULSE 108; RESP 20; TEMP 36.4; O2SAT 95
== END ==
PROVIDERS: Visit Provider Allergy & Immunology
DX: J45.51 Severe persistent asthma with (acute) exacerbation (principal)
CPT/HCPCS: 96372; J2357

== ENCOUNTER → 2020-11-07 15:12 | Outpatient (CLI) | payer MEDICARE, SELFPAY ==
--- NOTE | 2020-11-07 15:14 | MM_ITS ---
PROCEDURE INFORMATION: Exam: MG Screening 3D Mammography Exam date and time: 11/07/2020 3:14 PM Age: 60 years old Clinical indication: Encounter for screening mammogram for malignant neoplasm of breast TECHNIQUE: Imaging protocol: Screening tomosynthesis and 2D mammography including computer-aided detection (CAD) when performed. COMPARISON: 1. MG MM DIG SCREENING MAMM BI W/CAD 05/16/2019 3:08 PM 2. MG [facility] MM Dig screening mamm BI w/CAD 08/20/2017 4:19 PM FINDINGS: MAMMOGRAPHY: Breast composition: The breast tissue is composed of scattered areas of fibroglandular density. Mass: None. Architectural distortion: None. Calcifications: No suspicious calcifications. Asymmetric density: None. Skin thickening: None. Axillary adenopathy: None. IMPRESSION: No mammographic evidence of malignancy. Annual screening is recommended unless otherwise clinically indicated. ASSESSMENT: BI-RADS Category 1: Negative
== END ==
PROVIDERS: PCP Nurse Practitioner Family; Visit Provider Nurse Practitioner Family
DX: Z12.31 Encounter for screening mammogram for malignant neoplasm of breast (principal)
CPT/HCPCS: 77063; 77067

== ENCOUNTER 2020-12-26 15:09 | Outpatient (CLI) | payer MEDICARE, OTHER, SELFPAY ==
[2020-12-26 15:45] VITALS: BP 134/92; PULSE 94; RESP 20; O2SAT 97
== END 2020-12-26 15:45 | disposition home or self-care (01) ==
LOC: INF 15:16
PROVIDERS: PCP Nurse Practitioner Family; Visit Provider Allergy & Immunology
DX: J45.51 Severe persistent asthma with (acute) exacerbation (principal)
CPT/HCPCS: 96372; J2357

== ENCOUNTER 2021-02-06 14:52 | Outpatient (CLI) | payer MEDICARE, OTHER, SELFPAY ==
[2021-02-06 15:23] VITALS: BP 142/91; PULSE 72; RESP 18; TEMP 36.2; O2SAT 100
== END 2021-02-06 15:40 | disposition home or self-care (01) ==
LOC: INF 14:54
PROVIDERS: PCP Nurse Practitioner Family; Visit Provider Allergy & Immunology
DX: J45.51 Severe persistent asthma with (acute) exacerbation (principal)
CPT/HCPCS: 96372; J2357

== ENCOUNTER → 2022-01-06 10:44 | Outpatient (CLI) | payer MEDICARE, SELFPAY ==
--- NOTE | 2022-01-06 10:47 | MM_ITS ---
PROCEDURE INFORMATION: Exam: MG Bilateral Screening 3D Mammography Exam date and time: 01/06/2022 10:58 AM Age: 61 years old Clinical indication: Screening examination. No family history of breast cancer. TECHNIQUE: Imaging protocol: Bilateral Screening tomosynthesis and 2D mammography including computer-aided detection (CAD) when performed. COMPARISON: 1. MG MM DIG SCREENING MAMM BI W/CAD 11/07/2020 3:16 PM 2. MG MM DIG SCREENING MAMM BI W/CAD 05/16/2019 3:08 PM 3. MG [facility] MM Dig screening mamm BI w/CAD 08/20/2017 4:19 PM 4. MG MM MAMMO SCREEN W CAD G0202 03/29/2015 11:25 AM FINDINGS: MAMMOGRAPHY: Breast composition: There are scattered areas of fibroglandular density. Mass: No suspicious mass. Architectural distortion: None. Calcifications: No suspicious calcifications. Asymmetric density: None. Skin thickening: None. Axillary adenopathy: None. IMPRESSION: No mammographic evidence of malignancy. Annual screening is recommended unless otherwise clinically indicated. ASSESSMENT: BI-RADS Category 1: Negative
== END ==
PROVIDERS: PCP Nurse Practitioner Family; Visit Provider Nurse Practitioner Family
DX: Z12.31 Encounter for screening mammogram for malignant neoplasm of breast (principal)
CPT/HCPCS: 77063; 77067